=== PATIENT | male | born 1980 | race Caucasian/White ===

== ENCOUNTER 2016-07-24 03:07 | Emergency (ER) | payer SELFPAY ==
[2016-07-24] MEDS ORDERED: Albuterol Sulfate 1.25 MG/3 ML NEB ONE (03:18)
[2016-07-24] MEDS ORDERED: Proparacaine 0.5% Opth 15 ML BOT ONE (03:18)
[2016-07-24] MEDS ORDERED: Erythromycin Base 0.5% Ophth Oint 3.5 gm Tube ONE (03:41)
[2016-07-24] MEDS ORDERED: Sulfacetamide Sodium 10% Ophth Soln 15 ML BOT ONE (03:42)
[2016-07-24] MEDS ORDERED: HYDROcodone/Acetaminophen 10/325 mg Tablet ONE (03:43)
[2016-07-24] MEDS ORDERED: Gentamicin Ophth Ointment 0.3% 3.5 gm Tube ONE (03:43)
== END 2016-07-24 04:03 | disposition home or self-care (01) ==
LOC: MADERS 03:07
DX: S05.01XA Injury of conjunctiva and corneal abrasion without foreign body, right eye, initial encounter (principal); F17.210 Nicotine dependence, cigarettes, uncomplicated; W22.8XXA Striking against or struck by other objects, initial encounter
CPT/HCPCS: 99283

== ENCOUNTER 2017-05-22 13:20 | Emergency (ER) | payer SELFPAY ==
[2017-05-22] MEDS ORDERED: Tetracaine 0.5% OPHTH SOLN/PF 4 ML BOT ONE (13:32)
[2017-05-22] MEDS ORDERED: Cyclopentolate 1% Opth Drop 2 ML BOT ONE (13:55)
[2017-05-22] MEDS ORDERED: Erythromycin Base 0.5% Ophth Oint 3.5 gm Tube ONE (14:16)
== END 2017-05-22 14:50 | disposition home or self-care (01) ==
LOC: MADERS 13:20
DX: S05.02XA Injury of conjunctiva and corneal abrasion without foreign body, left eye, initial encounter (principal); F17.210 Nicotine dependence, cigarettes, uncomplicated; W45.8XXA Other foreign body or object entering through skin, initial encounter
CPT/HCPCS: 99283

== ENCOUNTER 2017-09-01 19:18 | Emergency (ER) | payer SELFPAY ==
[~2017-09-01 19:18] MED LIST: Sodium Chloride 0.9% 1,000 ML BAG ONE; Sodium Chloride 0.9% 100 ML BAG ONE
[2017-09-01] MEDS ORDERED: Dexamethasone 10 MG/ML VIAL ONE (19:56)
[2017-09-01] MEDS ORDERED: Acetaminophen 500 MG TAB ONE (19:56)
[2017-09-01] MEDS ORDERED: diphenhydrAMINE 50 MG/ML VIAL ONE (19:56)
[2017-09-01] MEDS ORDERED: methylPREDNISolone Sod Succ/PF 125 MG/2 ML VIAL ONE (19:56)
[2017-09-01 20:13] LABS: ALT (SGPT) 269 U/L (8-55); AST (SGOT) 200 U/L (5-34); Alkaline Phosphatase 95 U/L (40-150); Anion Gap 18 mmol/L (10-20); BUN (Urea Nitrogen) 28 mg/dL (8.9-20.6); Bilirubin, Total 3.7 mg/dL (0.2-1.2); Calc. Creatinine Clearance 0 mL/min (70-130); Carbon Dioxide 20 mmol/L (22-29); Chloride 102 mmol/L (98-107); Estimated GFR-MDRD 73; Globulin 4.1 g/dL (2.4-3.5); Glucose 92 mg/dL (70-105); Potassium 4.5 mmol/L (3.5-5.1); Protein, Total 8.1 g/dL (6.0-8.3); Sodium 135 mmol/L (136-145)
[2017-09-01] MEDS ORDERED: cefTRIAXone\\ROCEPHIN 2 GM VIAL ONE (20:13)
[2017-09-01 20:22] LABS: Hemoglobin 10.9 g/dL (14.0-18.0); Mean Corpuscular HGB CONC 30.8 g/dL (32.0-36.0); Mean Corpuscular Hemoglobin 19.4 pg (27.0-31.0); Mean Corpuscular Volume 63.1 fl (80.0-94.0); Platelet Count 142 thou/uL (130-400); RBC Distribution Width 13.5 % (11.5-14.5); Red Blood Cell (RBC) Count 5.61 mill/uL (4.70-6.10); White Blood Cell (WBC) Count 19.6 thou/uL (4.8-10.8)
[2017-09-01 20:23] LABS: Band 4 % (5-11); MDiff Complete? YES; Neutrophil 76 % (42-75)
[2017-09-01 20:24] LABS: Blast 1 % (0-0); Lymphocytes 12 % (21-51); Metamyelocyte 2 % (0-0); Monocytes 3 % (0-10)
[2017-09-01 20:25] LABS: Anisocytosis MARKED = >30 cells (100X) (0-5/hpf); Delete Auto Diff?? YES; Hypochromia MODERATE=16-30 cells (100X) (0-5/hpf); Microcytosis MARKED = >30 cells (100X) (0-5/hpf); Myelocyte 1 % (0-0); Target Cells MODERATE= 6-15 cells (100X) (0-1/hpf)
== END 2017-09-01 20:45 | disposition short-term general hospital (02) ==
LOC: MADERS 19:18
DX: K14.0 Glossitis (principal); K75.9 Inflammatory liver disease, unspecified; F17.210 Nicotine dependence, cigarettes, uncomplicated
CPT/HCPCS: 80053; 83605; 85025; 85652; 87040; 87076; 96365; 96375; J0696; J1100; J1200; J2930; J7050

== ENCOUNTER 2019-05-27 00:29 | Emergency (ER) | payer SELFPAY ==
--- NOTE | 2019-05-27 07:52 | RAD ---
Right shoulder 3 views: 05/27/2019 COMPARISON: None HISTORY: Fall, trauma, pain FINDINGS: There is widening of the acromioclavicular and coracoclavicular interspace on the right. Th ere is an osseous density measuring 9 mm inferior to the distal aspect of the clavicle. There is also a triangular osseous density measuring 1.9 cm within the coracoclavicular interspace. No evidenc e for dislocation of the glenohumeral joint. IMPRESSION: Age indeterminant, possibly acute, grade 3 AC joint injury. Osseous densities project inf erior to the distal clavicle as well as in the coracoclavicular interspace. These findings may be related to ligamentous calcification in the setting of remote injury or could represent osseous fract ure fragments, donor site uncertain, in the setting of an acute injury. Clinical correlation is essential. CT may be beneficial for further assessment.
== END 2019-05-27 01:10 ==
LOC: MADERS 00:29
DX: S43.101A Unspecified dislocation of right acromioclavicular joint, initial encounter (principal); F17.210 Nicotine dependence, cigarettes, uncomplicated; W18.09XA Striking against other object with subsequent fall, initial encounter

== ENCOUNTER 2019-08-03 23:47 | Emergency (ER) | payer SELFPAY ==
[2019-08-04] MEDS ORDERED: Morphine 4 MG/ML VIAL ONE (01:04)
[2019-08-04 01:18] LABS: Hemoglobin 10.7 g/dL (14.0-18.0); Mean Corpuscular HGB CONC 30.2 g/dL (32.0-36.0); Mean Corpuscular Hemoglobin 19.7 pg (27.0-31.0); Mean Corpuscular Volume 65.4 fL (78.0-98.0); Mean Platelet Volume 10.7 fL (7.4-10.4); Platelet Count 154 thou/uL (130-400); RBC Distribution Width 14.1 % (11.5-14.5); Red Blood Cell (RBC) Count 5.44 mill/uL (4.70-6.10); White Blood Cell (WBC) Count 7.9 thou/uL (4.8-10.8)
[2019-08-04] MEDS ORDERED: HYDROcodone/Acetaminophen 10/325 mg Tablet ONE (01:26)
[2019-08-04] MEDS ORDERED: Ibuprofen 800 MG TAB ONE (01:26)
[2019-08-04 01:32] LABS: ALT (SGPT) 380 U/L (8-55); AST (SGOT) 266 U/L (5-34); Albumin 4.1 g/dL (3.5-5.0); Alkaline Phosphatase 108 U/L (40-110); Anion Gap 15 mmol/L (10-20); BUN (Urea Nitrogen) 9 mg/dL (8.9-20.6); Bilirubin, Total 1.9 mg/dL (0.2-1.2); Calc. Creatinine Clearance 0 mL/min (70-130); Calcium 9.6 mg/dL (7.8-10.44); Carbon Dioxide 25 mmol/L (22-29); Chloride 103 mmol/L (98-107); Estimated GFR-MDRD Greater than 90; Glucose 90 mg/dL (70-105); Potassium 3.9 mmol/L (3.5-5.1); Protein, Total 8.1 g/dL (6.0-8.3); Sodium 139 mmol/L (136-145)
[2019-08-04 01:38] LABS: #Basophils 0.1 thou/uL (0.0-0.2); #Eosinphils 0.1 thou/uL (0.0-0.7); #Lymphocytes 3.1 thou/uL (1.20-3.40); #Monocytes 0.5 thou/uL (0.11-0.59); #Neutrophils 4.2 thou/uL (1.40-6.50); %Basophils 1.1 % (0.0-1.0); %Eosinophils 1.4 % (0.0-10.0); %Lymphocytes 38.7 % (21.0-51.0); %Monocytes 6.2 % (0.0-10.0); %Neutrophils 52.6 % (42.0-75.0); Hypochromia SLIGHT = 6-15 cells (100X) (0-5/hpf); MDiff Complete? YES; Microcytosis SLIGHT = 6-15 cells (100X) (0-5/hpf); Platelet Morphology Comment Appears Adequate; Target Cells SLIGHT = 2-5 cells (100X) (0-1/hpf); Tear Drops SLIGHT = 2-5 cells (100X) (0-1/hpf)
--- NOTE | 2019-08-04 08:01 | RAD ---
Radiograph right shoulder 3 views: DATE: 08/04/2019 Time: 12:43 AM HISTORY: 39-year-old male status post acute right traumatic shoulder pain due to fall. COMPARISON: 05/27/2019 FINDINGS: The previously demonstrated grade 3 AC joint separation is again demonstrated. Again noted are the we ll-corticated ossific fragments, 2 of them, inferior to the clavicle. These may represent old displaced fractures. Deformity, bony hypertrophy, and truncation of distal tip of clavicle is unchang ed. There is no dislocation or subluxation at the glenohumeral joint. No humeral head fracture. No definite acute fracture identified. No definite acute interval change. IMPRESSION: 1. Evidence for old, displaced fracture of distal tip of right clavicle. 2. Old the grade 3 acromioclavicular joint separation. 3. No acute fracture identified.
== END 2019-08-04 01:43 ==
LOC: MADERS 23:47
DX: S43.101A Unspecified dislocation of right acromioclavicular joint, initial encounter (principal); S43.421A Sprain of right rotator cuff capsule, initial encounter; F17.210 Nicotine dependence, cigarettes, uncomplicated; I10 Essential (primary) hypertension; W18.2XXA Fall in (into) shower or empty bathtub, initial encounter
CPT/HCPCS: 80053; 85025; 96374; J2270

== ENCOUNTER 2020-07-29 11:33 | Emergency (ER) | payer SELFPAY | END 2020-07-29 13:25 | LOC: MADERS 11:33 | DX: K42.9 Umbilical hernia without obstruction or gangrene (principal); K40.90 Unilateral inguinal hernia, without obstruction or gangrene, not specified as recurrent; N44.2 Benign cyst of testis; F17.210 Nicotine dependence, cigarettes, uncomplicated | CPT/HCPCS: 76870; 93976 ==

== ENCOUNTER 2020-11-10 09:49 | Emergency (ER) | payer SELFPAY ==
[2020-11-10] MEDS ORDERED: Ketorolac Tromethamine 60 MG/2 ML VIAL ONE (10:38)
== END 2020-11-10 10:53 ==
LOC: MADERS 09:49
DX: K43.9 Ventral hernia without obstruction or gangrene (principal); K42.9 Umbilical hernia without obstruction or gangrene; F17.210 Nicotine dependence, cigarettes, uncomplicated
CPT/HCPCS: 96372; 99283; J1885

== ENCOUNTER 2021-03-03 19:46 | Emergency (ER) | payer OTHER, SELFPAY ==
[2021-03-04] MEDS ORDERED: Albuterol 200 PUFF (6.7GM INHALER) ONE (01:29)
== END 2021-03-04 01:30 ==
LOC: MADERS 19:46
DX: U07.1 COVID-19 (principal); F17.210 Nicotine dependence, cigarettes, uncomplicated
CPT/HCPCS: 71045

== ENCOUNTER 2023-01-06 13:02 | Emergency (ER) | payer BC ==
[2023-01-06] MEDS ORDERED: Sodium Chloride 0.9% 1,000 ML ONE (13:56)
[2023-01-06 14:08] LABS: Hematocrit 32.3 % (42.0-52.0); Mean Corpuscular HGB CONC 30.8 g/dL (32.0-36.0); Mean Corpuscular Hemoglobin 21.2 pg (27.0-31.0); Mean Corpuscular Volume 68.7 fl (78.0-98.0); Mean Platelet Volume 15.2 fL (7.4-10.4); Platelet Count 80 10x3/uL (130-400); White Blood Cell (WBC) Count 4.1 10x3/uL (4.8-10.8)
[2023-01-06 14:13] LABS: Phosphorus 3.1 mg/dL (2.3-4.7)
[2023-01-06 14:18] LABS: ALT (SGPT) 267 U/L (8-55); AST (SGOT) 190 U/L (5-34); Albumin 3.2 g/dL (3.5-5.0); Alkaline Phosphatase 101 U/L (40-110); Anion Gap 15 mmol/L (10-20); BUN (Urea Nitrogen) 8 mg/dL (8.9-20.6); Bilirubin, Total 1.5 mg/dL (0.2-1.2); Calc. Creatinine Clearance 0 mL/min (70-130); Calcium 8.8 mg/dL (7.8-10.44); Carbon Dioxide 25 mmol/L (22-29); Chloride 94 mmol/L (98-107); Estimated GFR 76; Globulin 3.4 g/dL (2.4-3.5); Lipase 36 U/L (8-78); Magnesium 1.6 mg/dL (1.6-2.6); Potassium 4.6 mmol/L (3.5-5.1); Protein, Total 6.6 g/dL (6.0-8.3); Sodium 129 mmol/L (136-145)
[2023-01-06 14:22] LABS: #Basophils 0.1 thou/uL (0.0-0.2); #Eosinphils 0.1 thou/uL (0.0-0.7); #Lymphocytes 1.6 thou/uL (1.20-3.40); #Monocytes 0.3 thou/uL (0.11-0.59); #Neutrophils 2.1 thou/uL (1.40-6.50); %Basophils 1.3 % (0.0-1.0); %Eosinophils 2.6 % (0.0-10.0); %Monocytes 6.8 % (0.0-10.0); %Neutrophils 51.3 % (42.0-75.0); Hypochromia MODERATE=16-30 cells (100X) (0-5/hpf); MDiff Complete? YES; Macrocytosis SLIGHT = 6-15 cells (100X) (0-5/hpf); Microcytosis SLIGHT = 6-15 cells (100X) (0-5/hpf); Platelet Adequacy Comment Appears Decreased; Target Cells SLIGHT = 2-5 cells (100X) (0-1/hpf)
[2023-01-06 14:49] LABS: Glucose 657 mg/dL (70-105)
[2023-01-06 14:53] LABS: Bicarbonate (HCO3v) 30.8 mmol/L (22.0-28.0); CO2 Tension (PvCO2) 61.9 mmHg (42.0-51.0); Calcium, Ionized 1.22 mmol/L (1.15-1.33); Chloride 94 mmol/L (98-107); Hemoglobin - Calc 12.2 g/dL (14.0-18.0); Potassium 4.3 mmol/L (3.5-5.1); Sodium 131 mmol/L (138-145); T. Carbon Dioxide 32.7 mmol/L (22.0-28.0); vO2 Saturation-calc 92.7 % (60.0-85.0)
[2023-01-06] MEDS ORDERED: Sodium Chloride 0.9% 2,000 ML ONE (15:19)
[2023-01-06 18:20] LABS: Bicarbonate (HCO3v) 28.7 mmol/L (22.0-28.0); CO2 Tension (PvCO2) 53.6 mmHg (42.0-51.0); Calcium, Ionized 1.27 mmol/L (1.15-1.33); Chloride 102 mmol/L (98-107); Hemoglobin - Calc 11.9 g/dL (14.0-18.0); Potassium 4.1 mmol/L (3.5-5.1); Sodium 136 mmol/L (138-145); T. Carbon Dioxide 30.4 mmol/L (22.0-28.0); vO2 Saturation-calc 94.2 % (60.0-85.0)
[2023-01-06 18:26] LABS: Anion Gap 11 mmol/L (10-20); BUN (Urea Nitrogen) 8 mg/dL (8.9-20.6); Calc. Creatinine Clearance 0 mL/min (70-130); Calcium 8.4 mg/dL (7.8-10.44); Carbon Dioxide 25 mmol/L (22-29); Chloride 102 mmol/L (98-107); Estimated GFR 110; Potassium 4.1 mmol/L (3.5-5.1); Sodium 134 mmol/L (136-145)
[2023-01-06 18:37] LABS: Glucose 408 mg/dL (70-105)
== END 2023-01-06 20:47 | disposition short-term general hospital (02) ==
LOC: MADERS 13:02
DX: E11.00 Type 2 diabetes mellitus with hyperosmolarity without nonketotic hyperglycemic-hyperosmolar coma (NKHHC) (principal); E11.65 Type 2 diabetes mellitus with hyperglycemia; F17.210 Nicotine dependence, cigarettes, uncomplicated; Z79.84 Long term (current) use of oral hypoglycemic drugs
CPT/HCPCS: 36416; 80053; 82010; 82330; 82803; 83690; 83735; 84100; 85025; 96360; 96361; J7050